=== PATIENT | male | born 1980 | race Two or more races ===

== ENCOUNTER 2025-01-01 10:16 | Emergency (ER) | payer MEDICAID, SELFPAY ==
[2025-01-01 10:30] VITALS: BP 123/78; PULSE 99; RESP 18; TEMP 37.2; O2SAT 100; BMI 22.6
--- NOTE | 2025-01-01 10:42 | XR_ITS ---
Examination: Foot, right, 3 views Technique: AP, oblique, lateral views foot, 3 views Date and time of exam: January 01, 2025 1213 hrs. Indications: Redness swelling and pain involving the foot 5 years, diabetic Findings: Prominent osteopenia Soft tissue swelling about the first digit Early cortical bone destruction involving the shafts of the proximal phalanx first digit No fracture Impression: Early osteomyelitis proximal phalanx first digit, consider elective MRI foot without contrast follow-up
--- NOTE | 2025-01-01 10:43 | PD.EDRME ---
Rapid Medical Screening Exam E Arrival date/time: 01/01/25 10:16 This is a 44-year-old male that comes in with complaints of right great toe swelling and erythema. Patient was recently seen by his small business sales representative. Patient had a piece of his ingrown right great toe nail removed by small business sales representative. Patient states that there is more erythema and swelling to right great toe that is starting to go up his foot. Patient states that it feels hot. Patient has diabetes and just recently started taking care of it. I have greeted and performed a focused initial assessment of this patient. Initial appropriate labs ordered at this time. A comprehensive ED assessment and evaluation of the patient and analysis of all test and completion of medical decision making process will be conducted by additional ED provider. Chief Complaint: Skin/Abscess/Foreign Body Time Seen by Provider: 01/01/25 10:20 Vital signs: Vital Signs Temperature 99.0 F 01/01/25 10:30 Pulse Rate 99 01/01/25 10:30 Respiratory Rate 18 01/01/25 10:30 Blood Pressure 123/78 01/01/25 10:30 Pulse Oximetry (%) 100 01/01/25 10:30 Oxygen Delivery Method Room Air 01/01/25 10:30
[2025-01-01 11:37] LABS: Basophils # (Auto) 0.1 Thou/mm3 (0.0-0.2); Basophils % (Auto) 1 % (0-2.5); Eosinophils # (Auto) 0.2 Thou/mm3 (0.0-0.5); Eosinophils % (Auto) 2 % (0-10); Hematocrit 35.6 % (41.0-53.0); Hemoglobin 12.7 g/dL (13.5-16.0); Immature Granulocytes % (Auto) 1 % (0-0); Immature Granulocytes Auto 0.08 Thou/mm3 (0.00-0.00); Lymphocytes # (Auto) 3.4 Thou/mm3 (1.0-4.8); Lymphocytes % (Auto) 22 % (10-50); Mean Corpuscular HGB Conc 35.7 g/dl (31.0-37.0); Mean Corpuscular Hemoglobin 32.2 pg (25.0-35.0); Mean Corpuscular Volume 90 fL (80-100); Monocytes # (Auto) 1.1 Thou/mm3 (0.0-0.8); Monocytes % (Auto) 7 % (0-12); Neutrophils # (Auto) 10.5 Thou/mm3 (1.8-7.7); Neutrophils % (Auto) 68 % (37-80); Nucleated Red Blood Cell % 0 /100 WBC (0); Platelet Count 600 Thou/mm3 (140-440); RDW Standard Deviation 39.3 fL (35.1-43.9); Red Blood Count 3.95 Miln/mm3 (4.50-5.90); White Blood Count 15.4 Thou/mm3 (3.8-10.6)
[2025-01-01 12:35] LABS: Alanine Aminotransferase < 7 U/L (10-49); Albumin, Serum 3.9 gm/dL (3.5-5.0); Albumin/Globulin Ratio 1.1 (1.2-2.2); Alkaline Phosphatase 93 U/L (46-116); Anion Gap 8 (7-16); Aspartate Amino Transferase < 10 U/L (0-34); BUN/Creatinine Ratio 10 Ratio (12-20); Bilirubin,Total 0.4 mg/dL (0.3-1.2); Blood Urea Nitrogen 12 mg/dL (9-23); C-Reactive Protein 5.5 mg/dL (0.0-0.9); Calcium 8.8 mg/dL (8.3-10.6); Calcium (Corrected) 8.9 mg/dL (8.5-10.1); Chloride 98 mMol/L (98-107); Creatinine (Component) 1.2 mg/dL (0.6-1.3); Estimated Creatinine Clearance 72.7 mL/min (>60); Globulin 3.5 gm/dL (2.3-3.5); Osmolality,Calculated 288 (275-295); Potassium 4.4 mMol/L (3.4-5.1); Sodium 135 mMol/L (136-145); Total Protein 7.4 gm/dL (5.7-8.2); eGFR > 60 See Note
[2025-01-01 12:38] LABS: Glucose 434 mg/dL (74-106)
--- NOTE | 2025-01-01 16:43 | PC.NURSE ---
CALLED FOR PT FROM LOBBY/OUTSIDE, NO [email or web address]@ [phone]
== END 2025-01-01 18:25 | disposition left against medical advice (07) ==
PROVIDERS: Nurse Practitioner Family; Emergency Provider Emergency Medicine; PCP Nurse Practitioner Family
DX: M79.89 Other specified soft tissue disorders (principal); Z53.29 Procedure and treatment not carried out because of patient's decision for other reasons; E11.9 Type 2 diabetes mellitus without complications
CPT/HCPCS: 36415; 73630; 80053; 85025; 86140; 87040; 99281

== ENCOUNTER 2025-02-04 11:40 | Emergency (ER) | payer MEDICAID, SELFPAY ==
[2025-02-04 11:55] VITALS: BP 136/86; PULSE 95; RESP 17; TEMP 37.2; O2SAT 99; BMI 23.0
--- NOTE | 2025-02-04 12:19 | XR_ITS ---
Examination: Foot, right, 3 views Technique: AP, oblique, lateral views foot, 3 views Date and time of exam: February 04, 2025 1240 hours INDICATIONS: Right foot swelling and pain 2 months, diabetic FINDINGS: Prominent bone destruction involving the distal half of the proximal phalanx first digit in the proximal aspect distal phalanx first digit No foreign body IMPRESSION: Prominent osteomyelitis first digit
--- NOTE | 2025-02-04 12:20 | EKG_ITS ---
[facility] Test Date: 2025-02-04 Pat Name: JOSE LUIS AGUERO Department: Room: - Gender: Male [employer]: : 1980 Requested By: Antoine Cardona Order Number: [id number] Reading MD: Antoine Cardona Measurements Intervals [place] Rate: 101 P: 49 MI: 148 QRS: 66 QRSD: 81 T: 51 QT: 317 QTc: 412 Interpretive Statements SINUS TACHYCARDIA ABNORMAL RHYTHM ECG No previous ECG available for comparison /store/S0/[id number].pdf
--- NOTE | 2025-02-04 12:20 | XR_ITS ---
Examination: Abdomen sonogram, Limited Date and time of exam: February 04, 2025 1315 hours INDICATIONS: Epigastric pain today Technique: Real-time dillard scale transabdominal sonographic images of the upper abdomen obtained. Findings: Normal gallbladder Normal common bile duct 0.3 cm Pancreatic head 1.6 cm Liver 13.2 cm fatty infiltration Normal hepatopedal portal venous flow Patent IVC IMPRESSION: Normal gallbladder Fatty liver
--- NOTE | 2025-02-04 12:22 | EDNOTE_ITS ---
ED Wound/Laceration-RME/HPI General Chief Complaint: Wound/Laceration Stated Complaint: Right toe infection X 1 month, non compliant DM Time Seen by Provider: 02/04/25 11:46 Arrival date/time: 02/04/25 11:40 RME / HPI RME / HPI narrative: 44-year-old male patient with significant history of diabetes mellitus, came in for evaluation for worsening redness and swelling and puslike drainage right big toe now involving the foot dorsal aspect. Patient was seen by PCP today and was referred here for further management. Denies any fever denies any other complaints no medications taken prior to arrival. Related Data Home Medications ?Medication ?Instructions ?Recorded ?Confirmed insulin regular human 100 unit/mL 1 sliding scale dose subcut 06/26/21 06/26/21 (3 mL) subcutaneous pen (Novolin R USEASDIRECTD FlexPen) Previous Rx's ?Medication ?Instructions ?Recorded ibuprofen 800 mg tablet 800 mg PO TID PRN pain #30 t abs 05/09/19 IBU 800 mg tablet (ibuprofen) 800 mg PO Q6H PRN pain # 30 tabs 04/25/24 Allergies Allergy/AdvReac Type Severity Reaction Status Date / Time No Known Allergies Allergy Verified 02/04/25 11:49 Review of Systems Review of Systems Narrative Review of Systems: Review of system reviewed and within normal limits except mentioned in HPI ED Exam Narrative Physical exam: VITAL SIGNS: Reviewed. GENERAL APPEARANCE: Alert and interactive, follows commands, no acute distress, HEAD AND FACE: Non-traumatic. ENT: PERRL, pink conjunctivitis, eyelid no trauma, Mucous membrane moist. NECK: Supple, nontender, no nuchal rigidity. CHEST: No tenderness, no crepitus, no paradoxical movement, no retractions. LUNGS: Clear, well ventilated, symmetric, no rales, no wheezing, no ronchi, no stridor, good breath sounds bilaterally. HEART: Regular rate, regular rhythm, no murmur, no gallops. ABDOMEN: Soft, positive bowel sounds, nondistended, no guarding, nontender, no rebound, no masses, RECTAL: Deferred. GENITAL: Deferred. NEUROLOGICAL: Gross motor function intact sensory function intact, Appropriate for age. MUSCULOSKELETAL: low back nontender, full range of motion. EXTREMITIES: Right foot swelling, redness dorsal aspect, midfoot, and swelling also of the great toe, with 2 draining sinuses on the dorsal aspect, with puslike drainage nontender, full range of motion. Dorsalis pedis and posterior tibialis pulses +2 bilateral SKIN: Color pink, dry, no rash, no lacerations, no abrasions, no contusions. LYMPHATICS: Deferred. Course Quality Measures none Orders Category Date Time Status EKG (ED ONLY) *Do not use* NOW Care 02/04/25 12:20 Completed EKG (ED Only) Stat Exams 02/04/25 12:20 Draft US gall bladder Stat Exams 02/04/25 12:20 Completed XR foot comp RT min 3V Stat Exams 02/04/25 12:19 Completed Blood Culture (Lab) Stat Lab 02/04/25 12:36 Received CBC Stat Lab 02/04/25 12:36 Completed Comprehensive Metabolic Panel Stat Lab 02/04/25 12:36 Completed Lactate (Lactic Acid) Stat Lab 02/04/25 12:36 Completed Lactic Acid, 3 HR Stat Lab 02/04/25 16:11 Completed Procalcitonin Stat Lab 02/04/25 12:36 Completed Prothrombin Time with INR Stat Lab 02/04/25 12:36 Completed Piper/Tazo 3.375 gm Premix [Zosyn] Med 02/04/25 12:21 Discontinued 3.375 gm in 50 ml IV X1 Vancomycin/Ns 1 gm Ivpb 200 ml Med 02/04/25 12:21 Discontinued IV X1 Vital Signs Vital signs: Vital Signs Temperature 99.0 F 02/04/25 11:55 Pulse Rate 95 02/04/25 11:55 Respiratory Rate 17 02/04/25 11:55 Blood Pressure 136/86 H 02/04/25 11:55 Pulse Oximetry (%) 99 02/04/25 11:55 Oxygen Delivery Method Room Air 02/04/25 11:55 Wound / Laceration MDM Narrative MDM Narrative:: 44-year-old male patient with significant history of diabetes mellitus, came in for evaluation for worsening redness and swelling and puslike drainage right big toe now involving the foot dorsal aspect. Patient was seen by PCP today and was referred here for further management. Denies any fever denies any other complaints no medications taken prior to arrival. Patient eloped from the emergency room Patient data External records reviewed:: None Clinical information provided by:: patient Social determinants that could affect healthcare access:: none Patient has the following chronic illnesses:: Diabetes mellitus How is presenting disease/condition affected by chronic disease/condition?: exacerbated by Evaluation data The following diagnostics were reviewed and interpreted by me:: lab results and radiology exam(s) Lab and/or radiology exams considered but not ordered:: None Interpretation Summary: X-ray of the foot is significant for osteomyelitis, sodium was noted to be 133, potassium 5.2 blood sugar 444 with no sign of diabetic ketoacidosis. Medications / Prescriptions Medications or Prescriptions considered but not ordered:: None Medication administrations:: Medication Administration History Discontinued Medications Piperacillin/Tazobactam/Dextrose (Zosyn) 3.375 gm in 50 mls @ 100 mls/hr IV X1 ONE Stop: 02/04/25 12:50 Last Admin: 02/04/25 14:10 Dose: Not Given Documented By: Non-Admin Reason: Not In Room Vancomycin/Sodium Chloride (Vancomycin/Ns 1 Gm Ivpb) 200 mls @ 120 mls/hr IV X1 ONE Stop: 02/04/25 14:00 Last Admin: 02/04/25 14:10 Dose: Not Given Documented By: Non-Admin Reason: Not In Room Eloped Consultations Consultation(s) initiated? (list below): No Diagnosis Wound Differential Diagnosis: abscess and other (Osteomyelitis grade toe, diabetic toe infection) Most likely diagnosis given after review of the tests above:: Diabetic toe infection, osteomyelitis great toe Admission Indicated Admission indicated?: not indicated (Elopement) Admission Request Was there a request for admission?: No Disposition Plan Disposition Plan: other (specify) Discharge Plan Plan Patient Disposition: Elopement Prescriptions/Referrals Prescriptions/Med Rec: No Action ibuprofen 800 mg tablet 800 mg PO TID PRN (Reason: pain) Qty: 30 0RF Novolin R FlexPen 100 unit/mL (3 mL) Insulin Pen 1 sliding scale dose SUBCUT USEASDIRECTD ibuprofen [IBU] 800 mg tablet 800 mg PO Q6H PRN (Reason: pain) Qty: 30 0RF Referrals: Maria A Shore FNP-C [Primary Care Provider] - In 1 week Problem List Clinical Impression: Osteomyelitis of great toe, Diabetic foot infection Patient/Caregiver Discharge Instructions Print Language: Tamazight
[2025-02-04 12:48] LABS: Lactate (Lactic Acid) 2.5 mMol/L (0.4-2.0)
[2025-02-04 12:50] LABS: Basophils # (Auto) 0.1 Thou/mm3 (0.0-0.2); Basophils % (Auto) 1 % (0-2.5); Eosinophils # (Auto) 0.3 Thou/mm3 (0.0-0.5); Eosinophils % (Auto) 3 % (0-10); Hematocrit 38.3 % (41.0-53.0); Hemoglobin 13.3 g/dL (13.5-16.0); Immature Granulocytes % (Auto) 0 % (0-0); Immature Granulocytes Auto 0.03 Thou/mm3 (0.00-0.00); Lymphocytes # (Auto) 3.8 Thou/mm3 (1.0-4.8); Lymphocytes % (Auto) 38 % (10-50); Mean Corpuscular HGB Conc 34.7 g/dl (31.0-37.0); Mean Corpuscular Hemoglobin 31.6 pg (25.0-35.0); Mean Corpuscular Volume 91 fL (80-100); Monocytes # (Auto) 0.8 Thou/mm3 (0.0-0.8); Monocytes % (Auto) 8 % (0-12); Neutrophils # (Auto) 5.2 Thou/mm3 (1.8-7.7); Neutrophils % (Auto) 51 % (37-80); Nucleated Red Blood Cell % 0 /100 WBC (0); Platelet Count 502 Thou/mm3 (140-440); Red Blood Count 4.21 Miln/mm3 (4.50-5.90); White Blood Count 10.3 Thou/mm3 (3.8-10.6)
[2025-02-04 13:02] LABS: Prothrombin Time 10.7 Seconds (9.0-12.2)
[2025-02-04 13:16] LABS: Alanine Aminotransferase < 7 U/L (10-49); Albumin, Serum 4.1 gm/dL (3.5-5.0); Alkaline Phosphatase 93 U/L (46-116); Anion Gap 7 (7-16); Aspartate Amino Transferase 11 U/L (0-34); BUN/Creatinine Ratio 13 Ratio (12-20); Bilirubin,Total 0.4 mg/dL (0.3-1.2); Blood Urea Nitrogen 15 mg/dL (9-23); Calcium 10.1 mg/dL (8.3-10.6); Calcium (Corrected) 10.1 mg/dL (8.5-10.1); Carbon Dioxide 28.9 mMol/L (20.0-31.0); Chloride 97 mMol/L (98-107); Creatinine (Component) 1.2 mg/dL (0.6-1.3); Estimated Creatinine Clearance 73.4 mL/min (>60); Osmolality,Calculated 286 (275-295); Potassium 5.2 mMol/L (3.4-5.1); Procalcitonin 0.11 ng/ml (0.0-0.49); Sodium 133 mMol/L (136-145); Total Protein 8.1 gm/dL (5.7-8.2); eGFR > 60 See Note
[2025-02-04 13:19] LABS: Glucose 444 mg/dL (74-106)
--- NOTE | 2025-02-04 14:10 | PC.NURSE ---
Patient seen by surgeon and stated he did not want to stay for surgery or medications, patient said he would sign an AMA paper but walked out of ED prior to nurse getting paperwork.
[2025-02-04 15:47] LABS: Reflex Lactate? Y
== END 2025-02-04 15:16 | disposition left against medical advice (07) ==
LOC: SERX 12:49
PROVIDERS: Nurse Practitioner Family; Emergency Provider Emergency Medicine; PCP Nurse Practitioner Family
DX: E11.69 Type 2 diabetes mellitus with other specified complication (principal); M86.9 Osteomyelitis, unspecified; R10.13 Epigastric pain; R00.0 Tachycardia, unspecified; Z79.4 Long term (current) use of insulin
CPT/HCPCS: 36415; 73630; 76705; 80053; 83605; 84145; 85025; 85610; 87040; 93005; 99281

== ENCOUNTER 2025-02-04 15:54 | Inpatient (IN) | payer MEDICAID, SELFPAY ==
[2025-02-04 15:55] VITALS: BMI 23.0
--- NOTE | 2025-02-04 16:11 | EDNOTE_ITS ---
Lower Extremity Injury RME/HPI General Chief Complaint: Ankle/Foot Injury Stated Complaint: R FOOT INFECTIONS Time Seen by Provider: 02/04/25 16:09 Arrival date/time: 02/04/25 15:54 RME / HPI RME / HPI Narrative: 44-year-old male patient with significant history of diabetes mellitus, came in for evaluation for worsening redness and swelling and puslike drainage right big toe now involving the foot dorsal aspect. Patient was seen by PCP today and was referred here for further management. Denies any fever denies any other complaints no medications taken prior to arrival. patient was seen here earlier today for the same complaints. However patient eloped and came back. Related Data Home Medications ?Medication ?Instructions ?Recorded ?Confirmed insulin regular human 100 unit/mL 1 sliding scale dose subcut 06/26/21 06/26/21 (3 mL) subcutaneous pen (Novolin R USEASDIRECTD FlexPen) Previous Rx's ?Medication ?Instructions ?Recorded ibuprofen 800 mg tablet 800 mg PO TID PRN pain #30 t abs 05/09/19 IBU 800 mg tablet (ibuprofen) 800 mg PO Q6H PRN pain # 30 tabs 04/25/24 Allergies Allergy/AdvReac Type Severity Reaction Status Date / Time No Known Allergies Allergy Verified 02/04/25 11:49 Review of Systems Review of Systems Narrative Review of Systems: Review of system reviewed and within normal limits except mentioned in HPI ED Exam Narrative Physical exam: VITAL SIGNS: Reviewed. GENERAL APPEARANCE: Alert and interactive, follows commands, no acute distress, HEAD AND FACE: Non-traumatic. ENT: PERRL, pink conjunctivitis, eyelid no trauma, Mucous membrane moist. NECK: Supple, nontender, no nuchal rigidity. CHEST: No tenderness, no crepitus, no paradoxical movement, no retractions. LUNGS: Clear, well ventilated, symmetric, no rales, no wheezing, no ronchi, no stridor, good breath sounds bilaterally. HEART: Regular rate, regular rhythm, no murmur, no gallops. ABDOMEN: Soft, positive bowel sounds, nondistended, no guarding, nontender, no rebound, no masses, RECTAL: Deferred. GENITAL: Deferred. NEUROLOGICAL: Gross motor function intact sensory function intact, Appropriate for age. MUSCULOSKELETAL: low back nontender, full range of motion. EXTREMITIES: Right big toe swelling, involving the mid foot dorsal aspect, with tenderness to redness and puslike drainage on the dorsal aspect of the big toe. With tenderness no cyanosis noted full range of motion. SKIN: Color pink, dry, no rash, no lacerations, no abrasions, no contusions. LYMPHATICS: Deferred. Course Quality Measures none Orders Category Date Time Status COVID-19 Screening Questionnaire NOW Care 02/04/25 21:41 Active Decision to Admit X1 Care 02/04/25 21:41 Active Insert IV NOW Care 02/04/25 21:18 Active Consult to General Surgery Stat Cons 02/04/25 16:10 Ordered Blood Culture (Lab) Stat Lab 02/04/25 21:12 Ordered Piper/Tazo 3.375 gm Premix [Zosyn] Med 02/04/25 16:10 Discontinued 3.375 gm in 50 ml IV X1 Sodium Chloride 0.9% 1000 ml [Ns] 1,000 ml Med 02/04/25 16:10 Discontinued IV 999 mls/hr Vancomycin/Ns 1 gm Ivpb 200 ml Med 02/04/25 16:10 Discontinued IV X1 Vital Signs Vital signs: Vital Signs Temperature 98.3 F 02/04/25 16:55 Pulse Rate 102 H 02/04/25 16:55 Respiratory Rate 18 02/04/25 16:55 Blood Pressure 142/93 H 02/04/25 16:55 Pulse Oximetry (%) 98 02/04/25 16:55 Oxygen Delivery Method Room Air 02/04/25 16:55 Extremity Injury, Lower MDM Narrative MDM Narrative:: 44-year-old male patient with significant history of diabetes mellitus, came in for evaluation for worsening redness and swelling and puslike drainage right big toe now involving the foot dorsal aspect. Patient was seen by PCP today and was referred here for further management. Denies any fever denies any other complaints no medications taken prior to arrival. patient was seen here earlier today for the same complaints. However patient eloped and came back. X-ray of the foot showed significant osteomyelitis noticed on the great toe right Patient was started on vancomycin IV and IV Zosyn. Case discussed with Dr. Bazan, general surgeon on-call, who told me that he is going to do surgery tomorrow possible debridement versus amputation. Case discussed with hospitalist who admitted the patient. Patient data External records reviewed:: None Clinical information provided by:: patient Social determinants that could affect healthcare access:: none Patient has the following chronic illnesses:: Diabetes mellitus How is presenting disease/condition affected by chronic disease/condition?: exacerbated by Evaluation data The following diagnostics were reviewed and interpreted by me:: lab results and radiology exam(s) Lab and/or radiology exams considered but not ordered:: None Interpretation Summary: Significant osteomyelitis of the right great toe Medications / Prescriptions Medications or Prescriptions considered but not ordered:: None Medication administrations:: Medication Administration History Discontinued Medications Vancomycin/Sodium Chloride (Vancomycin/Ns 1 Gm Ivpb) 200 mls @ 120 mls/hr IV X1 ONE Stop: 02/04/25 17:49 Piperacillin/Tazobactam/Dextrose (Zosyn) 3.375 gm in 50 mls @ 100 mls/hr IV X1 ONE Stop: 02/04/25 16:39 Last Admin: 02/04/25 21:25 Dose: 100 mls/hr Documented By: BD Sodium Chloride (Ns) 1,000 mls @ 999 mls/hr IV .Q1H1M ONE Stop: 02/04/25 17:10 Last Admin: 02/04/25 21:24 Dose: 999 mls/hr Documented By: BD Vanco Zosyn and IV fluids Consultations Consultation(s) initiated? (list below): Yes Consultation #1 (Physician, Specialty, Details): Dr Rivers, general surgeon thank you Diagnosis Most likely diagnosis given after review of the tests above:: Osteomyelitis grade toe, diabetic foot infection Admission Indicated Admission indicated?: indicated Explain why admission is indicated or not indicated:: Patient is to be admitted for further management. Admission Request Was there a request for admission?: Yes Admission Attestation Admission request attestation: The Hospitalist to accept the patient for admission. Disposition Plan Disposition Plan: Admit Discharge Plan Plan Patient Disposition: Admit Acute Care w/in Hospital Discharge Disposition comment: Stable Prescriptions/Referrals Prescriptions/Med Rec: No Action ibuprofen 800 mg tablet 800 mg PO TID PRN (Reason: pain) Qty: 30 0RF Novolin R FlexPen 100 unit/mL (3 mL) Insulin Pen 1 sliding scale dose SUBCUT USEASDIRECTD ibuprofen [IBU] 800 mg tablet 800 mg PO Q6H PRN (Reason: pain) Qty: 30 0RF Referrals: Mone,Maria A, AMUSEMENT CENTRE MANAGER-C [Primary Care Provider] - In 1 week Problem List Clinical Impression: Osteomyelitis of great toe, Diabetic foot infection Patient/Caregiver Discharge Instructions Discharge Activity: activity as tolerated Print Language: Gu[place]ese Stand Alone Forms: [place] Award Info., Patient Portal Info Letter
[2025-02-04 16:55] VITALS: BP 142/93; PULSE 102; RESP 18; TEMP 36.8; O2SAT 98; BMI 23.8
[2025-02-04] MEDS: SODIUM CHLORIDE 0.9% 1000 ML 1,000 ML 999 ML IV (21:24)
[2025-02-04] MEDS: PIPER/TAZO 3.375 GM PREMIX 3.375 GM/50 ML BAG IV (21:25)
[2025-02-04] MEDS: VANCOMYCIN/NS 1 GM IVPB 200 ML IV (22:13)
--- NOTE | 2025-02-04 22:21 | PD.RESHP ---
Documentation for date of: 02/04/25 HPI History of Present Illness Chief complaint: Right lower extremity first phalange osteomyelitis History of present illness: 44-year-old male with past medical history of hypertension, poorly controlled type 2 diabetes previously on insulin, alcohol use disorder, tobacco use disorder, depression presented to the ED on 02/04 with a right lower extremity wound that has progressively worsened in the past month. Patient states that he has been seen previously by his tool repairer bench day before who told him to present to the ED as his right toe has progressively worsened and there is suspicion that he has infection of the bone. Patient denies having a fever/chills or other concerning systemic symptoms. He does state that he sometimes notices lower extremity swelling and neuropathic pain which has developed secondary to the diabetes. Patient states that he was diagnosed with type 2 diabetes years ago and was once well-controlled on insulin; however, about 2 years ago stopped taking insulin and has not followed up with PCP. Patient seen in the past by Dr. Chris but has failed to follow-up and manage his diabetes properly. Patient attributes this to his depressive symptoms. Medical history: As stated above Surgical history: Denies Allergies: NKDA Medications: States that he takes a blood pressure medication, unknown at this time Family history: Noncontributory Social history: Patient lives in [place], lives with his mother, does not work at this time due to disability, smokes 1 pack a day for the past 20 years, social alcohol use ROS: All 12 systems assessed and the patient denies unless otherwise stated in HPI In the ED, patient presented hypertensive 142/93, tachycardic 112, respiratory 18, afebrile satting 98 on room air. Pertinent lab findings include WBC 10.3, hemoglobin 13.3 with MCV of 91, sodium 133, potassium 5.2, creatinine 1.2, BUN 15, glucose 444, lactic acid 2.0, T. bili 0.4. Emergency physician consulted general surgery, Dr. Bazan who has agreed to proceed with amputation of the right lower extremity, first phalange. Patient will be admitted and treated with IV antibiotics with consultation from general surgery for right lower extremity, first phalangeal amputation. Exam Vital Signs Temp Pulse Resp BP Pulse Ox O2 Del Method 98.3 F 102 H 18 142/93 H 98 Room Air 02/04/25 16:55 02/04/25 16:55 02/04/25 16:55 02/04/25 16:55 02/04/25 16:55 02/04/25 16:55 Narrative Exam Physical Exam: GENERAL: Awake, answering questions appropriately Bhut[place], appears stated age. HEENT: NC/AT. Moist mucosa. PERRLA/EOMI. Poor dentition. Anicteric sclera. CARDIO: Heart RRR, no obvious murmurs, no JVD. PULM: No coughing or visible SOB. Lungs CTA B/L. GI: Abdomen soft, NT/ND, +BS. SKIN/MSK/EXT: Right foot extremely hard with weak pulses, right first phalange edematous with exudation of nailbed. No rashes/edema/amputations noted. +Pedal pulses present on the left extremity, dorsalis pedis NEURO: Oriented x3, Moves extremities x4, no focal neurologic deficits Results: Labs 02/04/25 22:31 02/04/25 22:31 Quality Measures Quality Measures none Medications Home Medications and Allergies Home Medications ?Medication ?Instructions ?Recorded ?Confirmed ?Type insulin regular human 100 unit/mL 1 sliding scale dose subcut 06/26/21 06/26/21 History (3 mL) subcutaneous pen (Novolin R USEASDIRECTD FlexPen) Allergies Allergy/AdvReac Type Severity Reaction Status Date / Time No Known Allergies Allergy Verified 02/04/25 11:49 Visit Medications Acetaminophen (Acetaminophen 325 Mg Tablet) 650 mg PO Q6H PRN PRN Reason: PAIN SCALE 1-3 (mild Stop: 03/06/25 22:14 Dextrose (Dextrose 50%-Water Inj 50 Ml Syringe) 25 ml IV Q15MIN PRN PRN Reason: BG 50-70 responsive npo pt Stop: 03/06/25 22:14 Dextrose (Dextrose 50%-Water Inj 50 Ml Syringe) 50 ml IV Q15MIN PRN PRN Reason: BG <50 OR BG <70 & pt unresponsive Stop: 03/06/25 22:14 Glucagon (Glucagon Inj 1 Mg Vial) 1 mg IM Q15MIN PRN PRN Reason: BG <70, and no IV access Heparin Sodium (Porcine) (Heparin Sod Inj 5000 Unit/Ml Vial) 5,000 unit SC Q12HR CHAYA Stop: 02/19/25 08:59 Ceftriaxone Sodium 2 gm/ (Sodium Chloride) 50 mls @ 100 mls/hr IV QDAY CHAYA Stop: 02/11/25 22:19 Insulin Human Lispro (Insulin Lispro (Admelog) 1 Unit/0.01 Ml Unit) 0 unit SC Q6HR CHAYA; Protocol Stop: 03/07/25 00:00 Morphine Sulfate (Morphine Sulf Inj 10 Mg/Ml Vial) 2 mg IVP Q6H PRN PRN Reason: PAIN SCALE 7-10 (Severe Stop: 02/09/25 22:14 Nicotine (Nicotine Patch 7 Mg/24 Hr Patch.Td24) 7 mg TOP QDAY CHAYA Stop: 03/07/25 08:59 Ondansetron HCl (Ondansetron Inj 2 Mg/Ml Inj 2 Ml) 4 mg IVP Q6H PRN; Protocol PRN Reason: NAUSEA OR VOMITING Stop: 03/06/25 22:14 Oxycodone/Acetaminophen (Oxycodone/Apap 5/325 Tablet) 1 tab PO Q6H PRN PRN Reason: PAIN SCALE 4-6 (Moderate Stop: 02/09/25 22:14 Pharmacy Consult (Vancomycin Pharmacy To Dose 1 Each Each) 1 each IV QDAY [facility] Stop: 03/07/25 08:59 Sennosides (Senna Tablet) 1 tab PO QDAY PRN; Protocol PRN Reason: constipation Stop: 03/06/25 22:14 Discontinued Medications Vancomycin/Sodium Chloride (Vancomycin/Ns 1 Gm Ivpb) 200 mls @ 120 mls/hr IV X1 ONE Stop: 02/04/25 17:49 Last Admin: 02/04/25 22:13 Dose: 120 mls/hr Piperacillin/Tazobactam/Dextrose (Zosyn) 3.375 gm in 50 mls @ 100 mls/hr IV X1 ONE Stop: 02/04/25 16:39 Last Infusion: 02/04/25 22:11 Dose: Infused Sodium Chloride (Ns) 1,000 mls @ 999 mls/hr IV .Q1H1M ONE Stop: 02/04/25 17:10 Last Infusion: 02/04/25 22:13 Dose: Infused Assessment & Plan Plan 44-year-old male with past medical history of hypertension, poorly controlled type 2 diabetes previously on insulin, alcohol use disorder, tobacco use disorder, depression presented to the ED on 02/04 with a right lower extremity wound that has progressively worsened in the past month will be admitted and treated with IV antibiotics with consultation from general surgery for right lower extremity, first phalangeal amputation. #Osteomyelitis, first digit right extremity # Diabetic foot infection, right lower extremity patient presenting with progressively worsening right foot pain and exudative lesion as noted in HPI above Patient has poorly controlled type 2 diabetes and is not on any medication at this time Was seen by podiatry who recommended he come to the ED In the ED, foot x-ray showed prominent bone destruction involving the distal half of the proximal phalanx first digit in the proximal aspect distal phalanx first digit with no foreign body Patient has associated tachycardia, WBC of 10.3, Pro-Angelito 0.11 and lactic acid of 2.0 In the ED, general surgery was consulted and agreed to do amputation in the a.m. Patient given 1 L IV fluid along with IV Zosyn and IV bank in the ED Plan: Antibiotics: Vancomycin, cefepime 2 g every 8 hours and Flagyl 500 mg p.o. every 8 hours General Surgery consulted, appreciate recommendations Multimodal pain management N.p.o. Wound care referral #Poorly controlled type 2 diabetes #Hyperglycemia #Electrolyte abnormalities Patient presenting to the ED with a glucose of around 444, last A1c's from 2020 was 13.5 Patient used to be on insulin and was apparently well-controlled at that time but has stopped taking insulin for about 2 years Plan: Follow-up on a.m. A1c Sliding scale insulin initiated, every 6 hours and basal insulin, Lantus 10 units at bedtime Follow-up with morning labs #Hypertension Patient states that he does take blood pressure medication, likely losartan?hydrochlorothiazide as noted on medication chart Patient presenting with mildly elevated blood pressure 142/93, Plan: Restarted losartan 50 mg daily #Alcohol use disorder, no signs of withdrawal #Tobacco use disorder #Depression, not on any medication Chronic medical conditions, not currently pertinent to the following presentation Plan: Started patient on nicotine patch Consider social service consultation Health Maintenance: Lines: PIV Diet: N.p.o. Bowel: Senna as needed GI prophylaxis: Not needed for now DVT prophylaxis: Heparin subcu Dispo: Pending general surgery consultation, IV antibiotics for osteomyelitis Code: Full Patient seen and assessed with attending Dr. Fer Larson, DO PGY-1 Internal Medicine - GME Attending Provider Attestation/Addendum After examination of the patient and review of the clinical data I feel that this patient needs admission to the hospital for further treatment/evaluation. I have discussed and was present for the essential components of the history, physical examination, diagnosis, and treatment plan with the resident. I agree with the patient's care as documented by the resident and amended herein by me. Gregorio Monroe DO. Patient seen and evaluated in the ED in short, 44-year-old male with significant past medical history of type 2 diabetes, on insulin, hypertension, tobacco use, alcohol use and depression, presented to the ED today for worsening right foot infection over the past month. Patient does follow with outpatient podiatry who recommended he come to the ED for further workup and evaluation. Patient subsequently admitted for diabetic foot with osteomyelitis of his right big toe. In the ED, patient slightly tachycardic with a pulse of 102 however afebrile, on room air at 98%. Initial labs on arrival significant for a potassium of 5.2, glucose 444, lactic acid 2.5 however has down trended normal procalcitonin, normal WBC, hemoglobin 13.3, platelet count 502. Foot x-ray on the right foot performed today demonstrating prominent osteomyelitis of the first digit. Patient also did receive a gallbladder ultrasound which demonstrated fatty liver and normal gallbladder. EKG demonstrated sinus tachycardia. Patient subsequently admitted to [facility] for diabetic foot infection and osteomyelitis of his right foot. General surgery has been consulted, amputation will be performed tomorrow on the right great toe. Patient also started on broad-spectrum antibiotics to include cefepime, vancomycin and Flagyl. A1c, CRP and lipid panel ordered and are pending, blood cultures ordered in the ED and are also pending. Will restart the patient's home meds as appropriate, will also start sliding scale and basal insulin in setting of upcoming surgery tomorrow. Nicotine patch is also been ordered Although this document has been carefully reviewed, there may still be some phonetic and other typographical errors. These errors are purely grammatical due to imperfections in the software program and should not be construed in any way to compromise the substance of the patient's medical care during this visit.
[2025-02-04 22:45] LABS: Basophils # (Auto) 0.1 Thou/mm3 (0.0-0.2); Basophils % (Auto) 1 % (0-2.5); Eosinophils # (Auto) 0.3 Thou/mm3 (0.0-0.5); Eosinophils % (Auto) 3 % (0-10); Hemoglobin 12.3 g/dL (13.5-16.0); Immature Granulocytes % (Auto) 0 % (0-0); Immature Granulocytes Auto 0.04 Thou/mm3 (0.00-0.00); Lymphocytes # (Auto) 3.7 Thou/mm3 (1.0-4.8); Lymphocytes % (Auto) 38 % (10-50); Mean Corpuscular HGB Conc 34.2 g/dl (31.0-37.0); Mean Corpuscular Hemoglobin 31.2 pg (25.0-35.0); Mean Corpuscular Volume 91 fL (80-100); Monocytes # (Auto) 0.8 Thou/mm3 (0.0-0.8); Monocytes % (Auto) 8 % (0-12); Neutrophils # (Auto) 4.9 Thou/mm3 (1.8-7.7); Neutrophils % (Auto) 50 % (37-80); Nucleated Red Blood Cell % 0 /100 WBC (0); Platelet Count 443 Thou/mm3 (140-440); RDW Standard Deviation 42.2 fL (35.1-43.9); Red Blood Count 3.94 Miln/mm3 (4.50-5.90); White Blood Count 9.7 Thou/mm3 (3.8-10.6)
[2025-02-04 23:12] VITALS: BP 169/93; PULSE 104; RESP 20; O2SAT 100
[2025-02-04] MEDS: INSULIN GLARGINE (Lantus) 5 UNIT/0.05 ML (PER 5 UNITS) 10 UNIT SC (23:40)
[2025-02-04 23:43] LABS: Alanine Aminotransferase 7 U/L (10-49); Albumin/Globulin Ratio 1.1 (1.2-2.2); Alkaline Phosphatase 92 U/L (46-116); Anion Gap 6 (7-16); Aspartate Amino Transferase < 8 U/L (0-34); BUN/Creatinine Ratio 13 Ratio (12-20); Bilirubin,Total 0.4 mg/dL (0.3-1.2); Blood Urea Nitrogen 14 mg/dL (9-23); C-Reactive Protein 2.8 mg/dL (0.0-0.9); Calcium 9.4 mg/dL (8.3-10.6); Calcium (Corrected) 9.4 mg/dL (8.5-10.1); Carbon Dioxide 27.8 mMol/L (20.0-31.0); Chloride 99 mMol/L (98-107); Creatinine (Component) 1.1 mg/dL (0.6-1.3); Estimated Creatinine Clearance 77.3 mL/min (>60); Globulin 3.5 gm/dL (2.3-3.5); Osmolality,Calculated 287 (275-295); Potassium 5.2 mMol/L (3.4-5.1); Sodium 133 mMol/L (136-145); Total Protein 7.5 gm/dL (5.7-8.2); eGFR > 60 See Note
[2025-02-04 23:48] LABS: Glucose 470 mg/dL (74-106)
[2025-02-04 23:55] VITALS: BP 169/93; PULSE 104; RESP 19; TEMP 36.8; O2SAT 100
[2025-02-05] VITALS (27 sets, daily range): BP systolic 89–170; BP diastolic 60–115; PULSE 79–105; RESP 8–20; TEMP 36.2–37.1; O2SAT 92–100; BMI 24.3
--- NOTE | 2025-02-05 00:13 | PC.NURSE ---
seen and examined by Dr. Monroe.
--- NOTE | 2025-02-05 01:00 | PC.NURSE ---
pt in shower
--- NOTE | 2025-02-05 02:00 | PC.NURSE ---
right great toe woungddraining small amount of clear, light yellowish drainage- Cleansed with wound cleanser, pat dry. Applied alginate in between right and posterior toes. 4x4 fluff on right great toe. Right foot wrapped with kerlix roll.
[2025-02-05] MEDS: CEFEPIME INJ 2 GM in SODIUM CHLORIDE 0.9% (Popper) 50 ML IV ×3 (05:40→21:19)
[2025-02-05 05:52] LABS: Basophils # (Auto) 0.1 Thou/mm3 (0.0-0.2); Basophils % (Auto) 1 % (0-2.5); Eosinophils # (Auto) 0.4 Thou/mm3 (0.0-0.5); Eosinophils % (Auto) 4 % (0-10); Hematocrit 34.1 % (41.0-53.0); Hemoglobin 11.7 g/dL (13.5-16.0); Immature Granulocytes % (Auto) 0 % (0-0); Immature Granulocytes Auto 0.03 Thou/mm3 (0.00-0.00); Lymphocytes # (Auto) 3.8 Thou/mm3 (1.0-4.8); Lymphocytes % (Auto) 37 % (10-50); Mean Corpuscular HGB Conc 34.3 g/dl (31.0-37.0); Mean Corpuscular Volume 91 fL (80-100); Monocytes % (Auto) 10 % (0-12); Neutrophils # (Auto) 5.1 Thou/mm3 (1.8-7.7); Neutrophils % (Auto) 49 % (37-80); Nucleated Red Blood Cell % 0 /100 WBC (0); Platelet Count 439 Thou/mm3 (140-440); RDW Standard Deviation 41.6 fL (35.1-43.9); Red Blood Count 3.77 Miln/mm3 (4.50-5.90); White Blood Count 10.5 Thou/mm3 (3.8-10.6)
[2025-02-05 05:59] LABS: Glucose Estimated Average 280 mg/dL (80-131); Hemoglobin A1C 11.4 % Hgb (4.8-6.0)
[2025-02-05] MEDS: metroNIDAZOLE/NS 500 MG IVPB 500 MG/100 ML BAG 200 MG IV ×3 (06:14→22:06)
[2025-02-05 06:21] LABS: Alanine Aminotransferase < 7 U/L (10-49); Albumin, Serum 3.4 gm/dL (3.5-5.0); Alkaline Phosphatase 81 U/L (46-116); Anion Gap 7 (7-16); Aspartate Amino Transferase < 10 U/L (0-34); BUN/Creatinine Ratio 11 Ratio (12-20); Bilirubin,Total 0.3 mg/dL (0.3-1.2); Blood Urea Nitrogen 11 mg/dL (9-23); Calcium 8.7 mg/dL (8.3-10.6); Calcium (Corrected) 9.2 mg/dL (8.5-10.1); Carbon Dioxide 29.6 mMol/L (20.0-31.0); Cardiac Risk Estimate 2.9 RATIO (4.0-6.7); Chloride 101 mMol/L (98-107); Cholesterol 106 mg/dL (132-200); Estimated Creatinine Clearance 85.1 mL/min (>60); Globulin 3.4 gm/dL (2.3-3.5); Glucose 299 mg/dL (74-106); HDL Cholesterol 37 mg/dL (40-60); LDL Cholesterol,Calculated 53 mg/dL (0-130); Magnesium 1.7 mg/dL (1.6-2.6); Osmolality,Calculated 286 (275-295); Potassium 3.8 mMol/L (3.4-5.1); Sodium 138 mMol/L (136-145); Total Protein 6.8 gm/dL (5.7-8.2); Triglycerides 80 mg/dL (30-150); eGFR > 60 See Note
[2025-02-05] MEDS: NICOTINE PATCH 7 MG/24 HR PATCH.TD24 TOP (08:28)
[2025-02-05] MEDS: LOSARTAN POTASSIUM 25 MG TABLET 50 MG PO (08:29)
--- NOTE | 2025-02-05 08:52 | PD.SURCONS ---
HPI Consult details Consult date: 02/05/25 Reason for consultation narrative: Patient was seen in consultation because of an abscess over the right great toe with osteomyelitis History of present illness: Patient has been plagued with pain over both the feet for quite some time. He also has a diabetes which is poorly controlled. He developed an infection in the right great toe came to the emergency room 1 month ago he was found to have a early osteomyelitis of the distal phalanx but for some reason no antibiotic was rendered the patient signed out. Patient seem to be noncompatible. This time is developed an abscess and came to the emergency room and signed out but then returned back. Other medical problem consisted of alcoholism and depression Past Medical History Past Medical History NEUROLOGIC: Positive Peripheral Neuropathy CARDIAC: Positive Cardiac Disorders and Hypertension; Negative Congestive Heart Failure RESPIRATORY: Negative Chronic Obstructive Pulmonary Disease (COPD) GASTROINTESTINAL: Negative Gastrointestinal Disorders GENITOURINARY: Negative Genitourinary Disorders or Renal Disease MUSCULOSKELETAL: Negative Osteomyelitis (none before) ENT: Positive History of ENT Problems (vessels in eyes leaking fluid bilateral eyes.) ENDOCRINE: Positive Endocrine Disorders and Diabetes Mellitus Type 2; Negative Diabetes Mellitus Type 1 OTHER HISTORY: Positive Falls (scraped left knee,and bbboth hands. Other fall fell flat on face.) Social History SMOKING STATUS: Current every day smoker SECOND HAND EXPOSURE: No SUBSTANCE USE: does not use Meds Home Medications and Allergies Home Medications ?Medication ?Instructions ?Recorded ?Confirmed ?Type insulin regular human 100 unit/mL 1 sliding scale dose subcut 06/26/21 02/05/25 History (3 mL) subcutaneous pen (Novolin R USEASDIRECTD FlexPen) insulin glargine 100 unit/mL (3 10 unit subcut HS 02/05/25 02/05/25 History mL) subcutaneous pen (Lantus Solostar U-100 Insulin) losartan 50 mg-hydrochlorothiazide 1 tab PO DAILY 02/05/25 02/05/25 History 12.5 mg tablet metformin 1,000 mg tablet 1,000 mg PO BID 02/05/25 02/05/25 History Allergies Allergy/AdvReac Type Severity Reaction Status Date / Time No Known Allergies Allergy Verified 02/04/25 11:49 Exam Vital Signs Temp Pulse Resp BP Pulse Ox O2 Del Method 97.9 F 96 16 157/103 H 95 Room Air 02/05/25 04:00 02/05/25 08:29 02/05/25 04:00 02/05/25 08:29 02/05/25 04:00 02/05/25 04:00 Narrative Exam Physical examination revealed a thin built male who is 5 foot 6 inches tall weighing 151 pounds his vital signs are normal other than slightly elevated blood pressure Routine Extremities Exam Comments: Examination of the right foot revealed swollen right great toe with purulent material on the dorsal aspect. There is loss of nail. Patient has good pedal pulses Routine Skin Exam Comments: Skin over the right great toe is destroyed Results Results: Laboratory Laboratory Narrative: Patient's laboratory workup is within normal limits without leukocytosis. His blood glucose was more than 400 when he came in yesterday but is down to 253 today Results: Imaging Imaging narrative: X-ray of the right foot revealed destruction of the 2 phalanges on the right foot patient was distal portion of the proximal phalanx and proximal portion of the distal phalanx. It also has soft tissue swelling Assessment & Plan Additional Assessment Additional comments: Impression: Abscess right great toe with osteomyelitis Diabetes mellitus History of alcohol abuse Plan Plan: I told the patient he will require incision and drainage. Since the bone is not destroyed on 2 phalanges he will require amputation of the right great toe at the midportion of the proximal phalanx. I may also remove the entire proximal phalanx because half of it is described. In which case his amputation will be at the metatarsophalangeal joint. Because of the infection wound will be left open and treated for secondary closure. Patient is agreeable to this procedure which is scheduled today.
[2025-02-05] MEDS: VANCOMYCIN/NS 1 GM IVPB 200 ML IV ×2 (10:05→22:57)
--- NOTE | 2025-02-05 10:41 | PD.SUROPNT ---
Date of Procedure 02/05/25 Pre Op Diagnosis Osteomyelitis and abscess over the right great toe involving both the phalanges Post Op Diagnosis Same Procedure Amputation of the right great toe and drainage of the abscess at mid phalangeal level Findings Patient is found to have swollen right great toe with soft tissue infection and purulent material. There is destruction of the bone over the distal portion of the proximal phalanx and proximal portion of the distal phalanx Procedure Description Of the patient was brought to the operating room ankle block was given by the anesthesiologist Dr. Sanchez. Then the right foot was washed with Betadine solution draped in a sterile manner. Timeout is performed. Then I made a racquet shaped incision over the midportion of the right great toe and carried it all around. This enabled me to get into remove the osteoporotic bone at the level of the mid proximal phalanx then all the necrotic tissue including the pus was drained and cultures were obtained the wound was then rongeured and smoothed out at the mid phalangeal level. Then after irrigating the wound extensively I closed part of the incision with interrupted 4-0 nylon stitches and the remaining wound was left open for secondary closure. This was packed with quarter inch iodoform gauze and dressing was applied with fluff and Kerlix roll. Patient tolerated the procedure well Anesthesia other (General LMA) Pathology / specimen Other (The tip of the right great toe) Estimated Blood Loss 20 Surgeon Danya Rivers MD Surgical Staff Operation Date: 02/05/25 10:15 Case Staff Anesthesiologist: Carlito Sanchez
--- NOTE | 2025-02-05 11:24 | SUR.PHASEI ---
1034: pt arrived to PACU via gurney with LMA present, pt unresponsive to pain, VS stable, breathing unlabored, dressing to right foot clean, dry, and intact, report from Hoa BARRERA and Dr Sanchez 1045: Dr Sanchez remaining at bedside with pt 1055: Pt arouses to voice, LMA removed 1118: pt tolerating ice chips 1120: Report called to HOLLY Arvizu, VS stable, dressing to right foot clean, dry, and intact, breathing unlabored 1124: pt disconnected from monitors and transferred to room at this time by Betty Ignacio RN
[2025-02-05] MEDS: INSULIN LISPRO (AdmeLOG) 1 UNIT/0.01 ML UNIT SC ×3 (12:03→21:18)
--- NOTE | 2025-02-05 14:19 | ESPR_ITS ---
<Statement entered by Jack Mirza MD - 02/08/25 08:58> I reviewed above note and agree with findings and plans. I have also personally examined the patient with medicine team and went over assessment and plan with medical team including chemistry intern and resident physician. Documentation for date of: 02/05/25 Subjective Subjective Interval history: No acute events overnight.?Patient seen and examined at bedside this AM.?Patient endorsed that foot had been worsening for about 1 month, was referred here by Policy Services Representative. Discussed with Dr. Bazan, surgery for amputation of the toe will be done today. Labs and vitals were reviewed.?No further complaints at this time. Review of systems otherwise negative except what is mentioned above. Exam Vital Signs Temp Pulse Resp BP Pulse Ox O2 Del Method O2 Flow Rate 97.1 F 105 H 18 166/108 H 98 Nasal Cannula 2 02/05/25 11:40 02/05/25 13:15 02/05/25 13:15 02/05/25 11:40 02/05/25 13:15 02/05/25 11:40 02/05/25 13:15 Narrative Exam Physical Exam: GENERAL: Awake, answering questions appropriately Slovenian, appears stated age. HEENT: NC/AT. Moist mucosa. PERRLA/EOMI. Poor dentition. Anicteric sclera. CARDIO: Heart RRR, no obvious murmurs, no JVD. PULM: No coughing or visible SOB. Lungs CTA B/L. GI: Abdomen soft, NT/ND, +BS. SKIN/MSK/EXT: Right foot extremely hard with weak pulses, right first phalange edematous with exudation of nailbed. No rashes/edema/amputations noted. +Pedal pulses present on the left extremity, dorsalis pedis NEURO: Oriented x3, Moves extremities x4, no focal neurologic deficits Objective Labs 02/05/25 04:57 02/05/25 04:57 Labs: Laboratory Results - last 24 hr 02/04/25 02/05/25 22:31 04:57 WBC 9.7 10.5 RBC 3.94 L 3.77 L Hgb 12.3 L 11.7 L Hct 36.0 L 34.1 L MCV 91 91 MCH 31.2 31.0 MCHC 34.2 34.3 RDW Std Deviation 42.2 41.6 Plt Count 443 H D 439 Neut % (Auto) 50 49 Lymph % (Auto) 38 37 Burt % (Auto) 8 10 Eos % (Auto) 3 4 Baso % (Auto) 1 1 Neut # (Auto) 4.9 5.1 Lymph # (Auto) 3.7 3.8 Burt # (Auto) 0.8 1.0 H Eos # (Auto) 0.3 0.4 Baso # (Auto) 0.1 0.1 Immature Gran # (Auto) 0.04 H 0.03 H Absolute Nucleated RBC 0.00 0.00 Immature Gran % 0 0 Nucleated RBC % 0 0 Sodium 133 L 138 Potassium 5.2 H 3.8 D Chloride 99 101 Carbon Dioxide 27.8 29.6 Anion Gap 6 L 7 BUN 14 11 Creatinine 1.1 1.0 Estim Creat Clear Calc 77.3 85.1 eGFR > 60 > 60 BUN/Creatinine Ratio 13 11 L Glucose 470 H* [address] Glu mg/dL 280 H Hemoglobin A1c 11.4 H Calculated Osmolality 287 286 Calcium 9.4 8.7 Corrected Calcium 9.4 9.2 Magnesium 1.7 Total Bilirubin 0.4 0.3 AST < 8 < 10 ALT 7 L < 7 L Alkaline Phosphatase 92 81 C-Reactive Prot, Quant 2.8 H Total Protein 7.5 6.8 Albumin 4.0 3.4 L D Globulin 3.5 3.4 Albumin/Globulin Ratio 1.1 L 1.0 L Triglycerides 80 Cholesterol 106 L LDL Cholesterol, Calc 53 HDL Cholesterol 37 L Cholesterol/HDL Ratio 2.9 L Quality Measures Quality Measures none Assessment & Plan Assessment Current Active Medications: Generic Name Dose Route Start Last Admin Trade Name Yann PRN Reason Stop Dose Admin Acetaminophen 650 mg 02/04/25 22:15 Acetaminophen 325 Mg Tablet PO 03/06/25 22:14 Q6H PRN PAIN SCALE 1-3 (mild Dextrose 25 ml 02/04/25 22:15 Dextrose 50%-Water Inj 50 Ml Syringe IV 03/06/25 22:14 Q15MIN PRN BG 50-70 responsive npo pt Dextrose 50 ml 02/04/25 22:15 Dextrose 50%-Water Inj 50 Ml Syringe IV 03/06/25 22:14 Q15MIN PRN BG <50 OR BG <70 & pt unresponsive Glucagon 1 mg 02/04/25 22:15 Glucagon Inj 1 Mg Vial IM Q15MIN PRN BG <70, and no IV access Heparin Sodium (Porcine) 5,000 unit 02/05/25 09:00 02/05/25 08:17 Heparin Sod Inj 5000 Unit/Ml Vial SC 02/19/25 08:59 Not Given Q12HR CHAYA Cefepime HCl 2 gm/ Sodium 50 mls @ 100 mls/hr 02/05/25 05:00 02/05/25 13:22 Chloride IV 02/12/25 04:59 100 mls/hr Q8HR CHAYA Administration Metronidazole 500 mg in 100 mls @ 200 mls/hr 02/05/25 05:21 02/05/25 06:15 Flagyl 500 Mg Iv IV 02/12/25 05:20 Not Given Q8HR CHAYA Vancomycin/Sodium Chloride 200 mls @ 120 mls/hr 02/05/25 10:00 02/05/25 10:05 Vancomycin/Ns 1 Gm Ivpb IV 02/12/25 09:59 120 mls/hr Q12H CHAYA Administration Insulin Glargine 15 unit 02/05/25 21:00 Insulin Glargine (Lantus) 5 Unit/0.05 Ml (Per 5 Units) SC 03/07/25 20:59 HS CHAYA Insulin Human Lispro 0 unit 02/05/25 00:00 02/05/25 12:03 Insulin Lispro (Admelog) 1 Unit/0.01 Ml Unit SC 03/07/25 00:00 4 unit Q6HR CHAYA Administration Protocol Losartan Potassium 50 mg 02/05/25 09:00 02/05/25 08:29 Losartan Potassium 25 Mg Tablet PO 03/07/25 08:59 50 mg QDAY CHAYA Administration Morphine Sulfate 2 mg 02/04/25 22:15 Morphine Sulf Inj 10 Mg/Ml Vial IVP 02/09/25 22:14 Q6H PRN PAIN SCALE 7-10 (Severe Nicotine 7 mg 02/05/25 09:00 02/05/25 08:28 Nicotine Patch 7 Mg/24 Hr Patch.Td24 TOP 03/07/25 08:59 7 mg QDAY CHAYA Administration Ondansetron HCl 4 mg 02/04/25 22:15 Ondansetron Inj 2 Mg/Ml Inj 2 Ml IVP 03/06/25 22:14 Q6H PRN NAUSEA OR VOMITING Protocol Oxycodone/Acetaminophen 1 tab 02/04/25 22:15 Oxycodone/Apap 5/325 Tablet PO 02/09/25 22:14 Q6H PRN PAIN SCALE 4-6 (Moderate Pharmacy Consult 1 each 02/05/25 09:00 Vancomycin Pharmacy To Dose 1 Each Each IV 03/07/25 08:59 QDAY PRN CONSULT Sennosides 1 tab 02/04/25 22:15 Senna Tablet PO 03/06/25 22:14 QDAY PRN constipation Protocol Plan 44-year-old male with past medical history of hypertension, poorly controlled type 2 diabetes previously on insulin, alcohol use disorder, tobacco use disorder, depression presented to the ED on 02/04 with a right lower extremity wound that has progressively worsened in the past month will be admitted and treated with IV antibiotics with consultation from general surgery for right lower extremity, first phalangeal amputation. #Osteomyelitis, first digit right extremity # Diabetic foot infection, right lower extremity patient presenting with progressively worsening right foot pain and exudative lesion as noted in HPI above Patient has poorly controlled type 2 diabetes and is not on any medication at this time Was seen by podiatry who recommended he come to the ED In the ED, foot x-ray showed prominent bone destruction involving the distal half of the proximal phalanx first digit in the proximal aspect distal phalanx first digit with no foreign body Patient has associated tachycardia, WBC of 10.3, Pro-Angelito 0.11 and lactic acid of 2.0 In the ED, general surgery was consulted and agreed to do amputation in the a.m. Patient given 1 L IV fluid along with IV Zosyn and IV bank in the ED Plan: Antibiotics: Vancomycin, cefepime 2 g every 8 hours and Flagyl 500 mg p.o. every 8 hours General Surgery consulted, appreciate recommendations Multimodal pain management N.p.o. Wound care referral #Poorly controlled type 2 diabetes #Hyperglycemia #Electrolyte abnormalities Patient presenting to the ED with a glucose of around 444, last A1c's from 2020 was 13.5 Patient used to be on insulin and was apparently well-controlled at that time but has stopped taking insulin for about 2 years Plan: Follow-up on a.m. A1c Sliding scale insulin initiated, every 6 hours and basal insulin, Lantus 10 units at bedtime Follow-up with morning labs #Hypertension Patient states that he does take blood pressure medication, likely losartan?hydrochlorothiazide as noted on medication chart Patient presenting with mildly elevated blood pressure 142/93, Plan: Restarted losartan 50 mg daily #Alcohol use disorder, no signs of withdrawal #Tobacco use disorder #Depression, not on any medication Chronic medical conditions, not currently pertinent to the following presentation Plan: Started patient on nicotine patch Consider social service consultation Health Maintenance: Lines: PIV Diet: N.p.o. Bowel: Senna as needed GI prophylaxis: Not needed for now DVT prophylaxis: Heparin subcu Dispo: Pending general surgery consultation, IV antibiotics for osteomyelitis Code: Full Patient plan of care was discussed with the attending physician, Dr. Mirza. Esther Lawson, PGY-2
[2025-02-05] MEDS: INSULIN GLARGINE (Lantus) 5 UNIT/0.05 ML (PER 5 UNITS) 15 UNIT SC (21:17)
[2025-02-05] MEDS: HEPARIN SOD INJ 5000 UNIT/ML VIAL SC (21:17)
[2025-02-06] VITALS: BP 131/82; PULSE 89; RESP 16; TEMP 36.1; O2SAT 99
[2025-02-06 04:00] VITALS: BP 156/95; PULSE 86; RESP 16; TEMP 36.5; O2SAT 99
[2025-02-06 05:00] VITALS: PULSE 86
[2025-02-06 05:38] LABS: Basophils % (Auto) 0 % (0-2.5); Eosinophils % (Auto) 0 % (0-10); Hematocrit 34.5 % (41.0-53.0); Hemoglobin 11.8 g/dL (13.5-16.0); Immature Granulocytes % (Auto) 0 % (0-0); Immature Granulocytes Auto 0.06 Thou/mm3 (0.00-0.00); Lymphocytes # (Auto) 3.2 Thou/mm3 (1.0-4.8); Lymphocytes % (Auto) 21 % (10-50); Mean Corpuscular HGB Conc 34.2 g/dl (31.0-37.0); Mean Corpuscular Hemoglobin 31.1 pg (25.0-35.0); Mean Corpuscular Volume 91 fL (80-100); Monocytes # (Auto) 0.8 Thou/mm3 (0.0-0.8); Monocytes % (Auto) 5 % (0-12); Neutrophils # (Auto) 11.5 Thou/mm3 (1.8-7.7); Neutrophils % (Auto) 74 % (37-80); Nucleated Red Blood Cell % 0 /100 WBC (0); Platelet Count 481 Thou/mm3 (140-440); RDW Standard Deviation 42.5 fL (35.1-43.9); Red Blood Count 3.79 Miln/mm3 (4.50-5.90); White Blood Count 15.7 Thou/mm3 (3.8-10.6)
[2025-02-06] MEDS: metroNIDAZOLE/NS 500 MG IVPB 500 MG/100 ML BAG 200 MG IV (05:39)
[2025-02-06] MEDS: CEFEPIME INJ 2 GM in SODIUM CHLORIDE 0.9% (Popper) 50 ML IV (05:39)
[2025-02-06 05:52] LABS: Alanine Aminotransferase 7 U/L (10-49); Albumin, Serum 3.7 gm/dL (3.5-5.0); Albumin/Globulin Ratio 1.1 (1.2-2.2); Alkaline Phosphatase 77 U/L (46-116); Anion Gap 7 (7-16); Aspartate Amino Transferase < 8 U/L (0-34); BUN/Creatinine Ratio 16 Ratio (12-20); Bilirubin,Total 0.3 mg/dL (0.3-1.2); Blood Urea Nitrogen 16 mg/dL (9-23); Calcium 9.7 mg/dL (8.3-10.6); Calcium (Corrected) 9.9 mg/dL (8.5-10.1); Carbon Dioxide 28.6 mMol/L (20.0-31.0); Chloride 100 mMol/L (98-107); Estimated Creatinine Clearance 85.1 mL/min (>60); Globulin 3.4 gm/dL (2.3-3.5); Glucose 239 mg/dL (74-106); Osmolality,Calculated 281 (275-295); Sodium 136 mMol/L (136-145); Total Protein 7.1 gm/dL (5.7-8.2); eGFR > 60 See Note
--- NOTE | 2025-02-06 06:24 | PC.NURSE ---
Pt stating that he wants to go home, discussed with pt importance of IV abx and wound care, pt states heavy smoker and wants to smoke just wants to leave, contacted no response, pt agrees to stay until speaking with surgeon
[2025-02-06] MEDS: INSULIN LISPRO (AdmeLOG) 1 UNIT/0.01 ML UNIT SC (07:36)
--- NOTE | 2025-02-06 07:42 | PD.SURPROG ---
Documentation for date of: 02/06/25 Subjective Subjective Brief History: Patient has been plagued with pain over both the feet for quite some time. He also has a diabetes which is poorly controlled. He developed an infection in the right great toe came to the emergency room 1 month ago he was found to have a early osteomyelitis of the distal phalanx but for some reason no antibiotic was rendered the patient signed out. Patient seem to be noncompatible. This time is developed an abscess and came to the emergency room and signed out but then returned back. Other medical problem consisted of alcoholism and depression Narrative: Patient is doing well since amputation of the right great toe Exam Vital Signs Temp Pulse Resp BP Pulse Ox O2 Del Method O2 Flow Rate 97.7 F 86 16 156/95 H 99 Nasal Cannula 1 02/06/25 04:00 02/06/25 05:00 02/06/25 04:00 02/06/25 04:00 02/06/25 04:00 02/06/25 00:00 02/06/25 04:00 His vital signs are normal other than elevated blood pressure Results Results: Laboratory Laboratory Narrative: His laboratory work shows leukocytosis Assessment & Plan Assessment Additional comments: Impression: Satisfactory recovery following amputation of the right great toe Plan Plan: Patient will benefit with IV antibiotics for a day or 2 and then may be discharged because the involved wound has been removed. But he has had a considerable soft tissue infection for which IV antibiotics may be beneficial. He is anxious to go home but his diabetes needs to be controlled adequately before discharging him Procedures Procedures Amputation of the right great toe and drainage of the abscess at mid phalangeal level
[2025-02-06 08:00] VITALS: BP 173/104; PULSE 90; PULSE 94; RESP 17; TEMP 36.4; O2SAT 100
[2025-02-06 09:18] LABS: Vancomycin,Trough 12.8 mcg/mL (5.0-10.0)
[2025-02-06] MEDS: NICOTINE PATCH 7 MG/24 HR PATCH.TD24 TOP (09:23)
[2025-02-06 09:24] VITALS: BP 173/104; PULSE 94
[2025-02-06] MEDS: HEPARIN SOD INJ 5000 UNIT/ML VIAL SC (09:24)
[2025-02-06] MEDS: LOSARTAN POTASSIUM 25 MG TABLET 50 MG PO (09:24)
--- NOTE | 2025-02-06 14:28 | ESDS_ITS ---
<Statement entered by Jack Mirza MD - 02/08/25 09:00> I reviewed above note and agree with findings and plans. I have also personally examined the patient with medicine team and went over assessment and plan with medical team including international relations professor and resident physician. Planned Discharge Date 02/06/25 DS: Providers Provider Date of admission: 02/04/25 22:15 Primary care physician: PANKAJ Robert Admitting Provider: Randal Monroe DO Attending Provider on Admission: Randal Monroe DO Consults: 02/04/25 16:10 Consult to General Surgery Stat Comment: Diabetic foot infection Consulting Provider: Danya Rivers 02/04/25 22:18 Referral Registered Dietitian Routine Comment: 02/04/25 22:33 Referral Wound Care Routine Comment: 02/05/25 00:46 Referral Respiratory Therapy Routine Comment: Attending Provider on DC: Jessika Walker MD Discharging Provider: Jessika Walker MD DS: Diagnosis Problem List Completed Was Problem List Reviewed/Reconciled?: Yes Hospital Course Hospital Course Hospital course: Mr. Kaplan is a 44-year-old male with past medical history of hypertension, poorly controlled type 2 diabetes previously on insulin, alcohol use disorder, tobacco use disorder, depression presented to [facility] ED on 02/04/25 with progressively worsening right lower extremity wound. Pt has long hisotry of poorly controlled diabetes due to non compliance. Foot X-ray on admission showed prominent osteomylitis first digit. General surgery was consulted and patient underwent amputation of the right great toe and drainage of the abscess at the med pharyngeal level on 02/05/2025. Patient is extensively counseled on adhering to his insulin regimen. As per surgery recommendation patient was advised to stay in the hospital for at least 1 more day for continued IV antibiotics as there was extensive cellulitis of the surrounding tissue. However patient left AGAINST MEDICAL ADVICE on 02/06/2025. Discussed with my attending physician Dr. Yuki Walker (PGY-1)- Internal medicine resident Time Spent with Patient Time attestation: Total time spent providing and/or coordinating discharge services: Time spent: Greater than 30 minutes Exam Vital Signs Temp Pulse Resp BP Pulse Ox O2 Del Method O2 Flow Rate 97.5 F 94 17 173/104 H 100 Room Air 1 02/06/25 08:00 02/06/25 09:24 02/06/25 08:00 02/06/25 09:24 02/06/25 08:00 02/06/25 08:00 02/06/25 04:00 Narrative Exam GENERAL: A&Ox3 . Awake, Not in acute distress NEURO: no focal neurological deficits HEENT: Atraumatic, Normocephalic. mucous membranes moist. Eyes open, symmetrical, & clear HEART: Normal Heart Sounds LUNGS: Clear to auscultation with no wheezing or crackles. ABDOMEN: soft, non-distended, non-tender, bowel sounds heard, no guarding or rebound tenderness SKIN: No Rash or ecchymoses EXTREMITIES: No edema, tenderness, able to move all 4 extremities, pedal pulses palpated, right foot in surgical wrap. Discharge Plan Plan Patient Disposition: Left Against Medical Advice Disposition Comment: ama went home Prescriptions/Referrals Prescriptions/Med Rec: No Action Novolin R FlexPen 100 unit/mL (3 mL) Insulin Pen 1 sliding scale dose SUBCUT USEASDIRECTD metformin 1,000 mg tablet 1,000 mg PO BID Patient Comments: take 1 tablet by mouth twice a day insulin glargine [Lantus Solostar U-100 Insulin] 100 unit/mL (3 mL) insulin pen 10 unit SUBCUT HS Patient Comments: inject 10 units subcutaneously at bedtime losartan-hydrochlorothiazide 50-12.5 mg tablet 1 tab PO DAILY Patient Comments: take 1 tablet by mouth once daily Referrals: Maria A Shore FNP-C [Primary Care Provider] - Patient/Caregiver Discharge Instructions Discharge Activity: activity as tolerated Education Materials: Preventing Surgical Site Infections Print Language: Arabic Quality Discharge Quality Measures VTE prophylaxis
--- NOTE | 2025-02-06 15:22 | PC.SS ---
pt left AMA; SS unable to complete initial
== END 2025-02-06 11:28 | disposition left against medical advice (07) | DRG 314 ==
LOC: SERX 21:42 → SERHOLD 23:09 → S3SX 02-05 09:04 → SERHOLD 02-07 05:53
PROVIDERS: Surgery; Admitting Provider Student in an Organized Health Care Education/Training Program; Emergency Provider Emergency Medicine; PCP Nurse Practitioner Family; Visit Provider Student in an Organized Health Care Education/Training Program
PROC: 0Y6P0Z0 Detachment at Right 1st Toe, Complete, Open Approach (ICD-10-PCS; CPT 28820; principal; 2025-02-05 10:00)
DX: E11.69 Type 2 diabetes mellitus with other specified complication (principal); M86.8X7 Other osteomyelitis, ankle and foot; I10 Essential (primary) hypertension; E11.65 Type 2 diabetes mellitus with hyperglycemia; L02.611 Cutaneous abscess of right foot; E11.628 Type 2 diabetes mellitus with other skin complications; F10.20 Alcohol dependence, uncomplicated; F17.210 Nicotine dependence, cigarettes, uncomplicated; F32.A Depression, unspecified; M81.0 Age-related osteoporosis without current pathological fracture; Z79.4 Long term (current) use of insulin; Z79.899 Other long term (current) drug therapy; Z91.199 Patient's noncompliance with other medical treatment and regimen due to unspecified reason; L03.031 Cellulitis of right toe; K76.0 Fatty (change of) liver, not elsewhere classified; Z53.29 Procedure and treatment not carried out because of patient's decision for other reasons
CPT/HCPCS: 36415; 80053; 80061; 80202; 83036; 83735; 85025; 86140; 87040; 87070; 87075; 87077; 87186; 87205; 93225; 96365; 96372; 99285; A4217; A4649; J0692; J1100; J1644; J1815; J2371; J2543; J2704; J2765; J2795; J3010; J3370; J3490; J7030; J7050; A9270; J1836

== ENCOUNTER → 2025-02-16 | Outpatient (CLI) | payer MEDICAID, SELFPAY | END | disposition home or self-care (01) | PROVIDERS: PCP Nurse Practitioner Family; Referring Provider Nurse Practitioner Family; Visit Provider Student in an Organized Health Care Education/Training Program | DX: E11.621 Type 2 diabetes mellitus with foot ulcer (principal); L97.512 Non-pressure chronic ulcer of other part of right foot with fat layer exposed; Z72.0 Tobacco use; F10.90 Alcohol use, unspecified, uncomplicated; E11.51 Type 2 diabetes mellitus with diabetic peripheral angiopathy without gangrene; Z79.85 Long-term (current) use of injectable non-insulin antidiabetic drugs; Z79.4 Long term (current) use of insulin; I10 Essential (primary) hypertension; L81.9 Disorder of pigmentation, unspecified | CPT/HCPCS: 97597; 99213; A9270; G0463 ==

== ENCOUNTER → 2025-02-23 | Outpatient (CLI) | payer MEDICAID, SELFPAY | END | disposition home or self-care (01) | LOC: SWHD 13:38 | PROVIDERS: PCP Internal Medicine; Referring Provider Internal Medicine; Visit Provider Student in an Organized Health Care Education/Training Program | DX: E11.621 Type 2 diabetes mellitus with foot ulcer (principal); L97.512 Non-pressure chronic ulcer of other part of right foot with fat layer exposed; F10.90 Alcohol use, unspecified, uncomplicated; E11.51 Type 2 diabetes mellitus with diabetic peripheral angiopathy without gangrene; Z79.85 Long-term (current) use of injectable non-insulin antidiabetic drugs; I10 Essential (primary) hypertension; L81.9 Disorder of pigmentation, unspecified | CPT/HCPCS: 11042; A9270 ==

== ENCOUNTER → 2025-03-09 | Outpatient (CLI) | payer MEDICAID, SELFPAY | END | disposition home or self-care (01) | LOC: SWHD 11:07 | PROVIDERS: PCP Internal Medicine; Referring Provider Internal Medicine; Visit Provider Student in an Organized Health Care Education/Training Program | DX: E11.621 Type 2 diabetes mellitus with foot ulcer (principal); L97.512 Non-pressure chronic ulcer of other part of right foot with fat layer exposed; F10.90 Alcohol use, unspecified, uncomplicated; E11.51 Type 2 diabetes mellitus with diabetic peripheral angiopathy without gangrene; Z79.85 Long-term (current) use of injectable non-insulin antidiabetic drugs; I10 Essential (primary) hypertension; L81.9 Disorder of pigmentation, unspecified | CPT/HCPCS: 97597; A9270 ==

== ENCOUNTER → 2025-03-30 | Outpatient (CLI) | payer MEDICAID, SELFPAY | END | disposition home or self-care (01) | LOC: SWHD 14:49 | PROVIDERS: PCP Internal Medicine; Referring Provider Internal Medicine; Visit Provider Student in an Organized Health Care Education/Training Program | DX: E11.621 Type 2 diabetes mellitus with foot ulcer (principal); L97.511 Non-pressure chronic ulcer of other part of right foot limited to breakdown of skin; F10.90 Alcohol use, unspecified, uncomplicated; E11.51 Type 2 diabetes mellitus with diabetic peripheral angiopathy without gangrene; Z79.85 Long-term (current) use of injectable non-insulin antidiabetic drugs; I10 Essential (primary) hypertension; L81.9 Disorder of pigmentation, unspecified | CPT/HCPCS: 97597; A9270 ==